=== PATIENT | female | born 1985 | race Caucasian/White ===

== ENCOUNTER 2018-08-06 07:11 | Day surgery (SDC) | payer MEDICARE ==
[~2018-08-06] VITALS: Ht 172.7 cm; Wt 131.5 kg
--- NOTE | ~2018-08-06 | OP ---
PATIENT NAME: BRENDA BURNHAM MEDICAL RECORD: [id number] :85 LOCATION:D.OPS ADMISSION DATE: SURGEON: KARL KWONG MD DATE OF OPERATION: 08/06/2018 PREOPERATIVE DIAGNOSES: 1. Posterior neck sebaceous cyst (3 cm). 2. Morbid obesity. 3. Lupus. 4. Polycystic ovary syndrome. 5. Asthma. 6. Fibromyalgia. 7. Tobacco dependence syndrome. POSTOPERATIVE DIAGNOSES: 1. Posterior neck sebaceous cyst (3 cm). 2. Morbid obesity. 3. Lupus. 4. Polycystic ovary syndrome. 5. Asthma. 6. Fibromyalgia. 7. Tobacco dependence syndrome. PROCEDURE: Excision of 3 cm posterior neck sebaceous cyst. SURGEON: Karl Kwong MD REPORT OF PROCEDURE: The patient's right posterior neck was prepped and draped in sterile fashion. An ovoid incision was made through a skin crease on the right posterior neck. Electrocautery was used to dissect through the subcutaneous tissues. There is a firm inflammatory type mass present here. We just came around the normal appearing fatty tissues and excised all the way down near the fascia of the posterior neck. This area of inflammation was completely excised. There were as still some inflammatory changes to the subcutaneous tissues near the incision, but the fistulous tracts, which were extending out to the skin were all removed with the specimen. We irrigated out the wound with normal saline and care was taken to assure there was no sign of any bleeding. The wound was then infused with a total of 10 mL of 0.25% Marcaine with epinephrine. We then closed the skin transversely using 3-0 silks in a vertical mattress fashion. COMPLICATIONS: None. CONDITION: Stable. ANESTHESIA: General endotracheal and local. BLOOD LOSS: Minimal. TRANSINT:[id number] Voice Confirmation ID: [id number] DOCUMENT ID: [id number] CC: Faviola Graves APN OPERATIVE REPORT [id number] KINGBRENDA KARL ARIAS MD at 1219 CC: FAVIOLA GRAVES APN [id number] DICTATION DATE: 08/06/18 1017 CURRICULUM AND INSTRUCTION DIRECTOR: 08/06/18 [address] [place] [address]
[~2018-08-06 07:11] MED LIST: PROTONIX40 MG PO; SUBOXONE 2 MG-01 TAB SL; [UNRECOGNIZED DRUG - REMARK] PO
[2018-08-06 07:35] LABS: BASOPHILS 0.3 % (0-2); EOSINOPHILS 6.1 % (0-7); HEMATOCRIT 40.4 % (36.0-48.0); HEMOGLOBIN 13.6 g/dL (12-16); IMMATURE GRANULOCYTES 0.1 % (0-5); LYMPHOCYTES 33.9 % (15-50); MCH 28.5 pg (26.0-34.0); MCHC 33.7 g/dL (31.0-37.0); MCV 84.5 fL (80.0-100.0); MEAN PLATELET VOLUME 9.4 fL (7.4-10.4); MONOCYTES 6.1 % (2-11); NEUTROPHILS 53.5 % (40-80); PLATELET COUNT 264 10x3/uL (130-400); RBC 4.78 10x6/uL (4.00-5.40); RDW 15.8 % (11.5-14.5); WBC 7.8 10x3/uL (4.8-10.8)
[2018-08-06 07:50] LABS: CALC OSMOLALITY 279 mosm/kg (275-300); CALCIUM 8.7 mg/dL (8.5-10.1); CARBON DIOXIDE 31.1 mmol/L (21.0-32.0); CHLORIDE - SERUM 105 mmol/L (98-107); CREATININE - SERUM 0.8 mg/dL (0.6-1.3); GLUCOSE 93 mg/dL (74-106); POTASSIUM - SERUM 4.2 mmol/L (3.5-5.1); SODIUM 141 mmol/L (136-145); UREA NITROGEN 10 mg/dL (7-18); eGFR NON AFRICAN AMERICAN 88 mL/min (90-120)
[2018-08-06] MEDS ORDERED: IBUPROFEN800 MG PO (08:26)
[2018-08-06 08:32] VITALS: BP 118/78; Ht 172.7 cm; Wt 131.5 kg
[2018-08-06 08:39] LABS: HCG URINE NEGATIVE (NEGATIVE)
[2018-08-06] MEDS ORDERED: NORCO 10-325 TA1 TAB PO (10:12)
== END 2018-08-06 12:55 | disposition home or self-care (01) ==
LOC: D.OPS 07:11
PROVIDERS: Surgery
DX: D17.0 Benign lipomatous neoplasm of skin and subcutaneous tissue of head, face and neck (principal); E66.01 Morbid (severe) obesity due to excess calories; Z68.41 Body mass index [BMI] 40.0-44.9, adult; M32.9 Systemic lupus erythematosus, unspecified; E28.2 Polycystic ovarian syndrome; J45.909 Unspecified asthma, uncomplicated; M79.7 Fibromyalgia; F17.200 Nicotine dependence, unspecified, uncomplicated; Z01.812 Encounter for preprocedural laboratory examination

== ENCOUNTER → 2020-04-11 12:01 | Outpatient (CLI) | payer MEDICARE ==
[2018-08-06 08:32] VITALS: BMI 44.1
[~2020-04-11 12:01] MED LIST changes: +IBUPROFEN800 MG PO; +NORCO 10-325 TA1 TAB PO
[2020-04-11 12:33] LABS: BASOPHILS 0.2 % (0-2); EOSINOPHILS 1.9 % (0-7); HEMATOCRIT 39.1 % (36.0-48.0); HEMOGLOBIN 12.7 g/dL (12-16); IMMATURE GRANULOCYTES 0.1 % (0-5); LYMPHOCYTES 28.6 % (15-50); MCHC 32.5 g/dL (31.0-37.0); MCV 89.3 fL (80.0-100.0); MEAN PLATELET VOLUME 10.1 fL (7.4-10.4); MONOCYTES 5.7 % (2-11); NEUTROPHILS 63.5 % (40-80); PLATELET COUNT 251 10x3/uL (130-400); RBC 4.38 10x6/uL (4.00-5.40); RDW 13.6 % (11.5-14.5); WBC 8.4 10x3/uL (4.8-10.8)
[2020-04-11 12:53] LABS: ALBUMIN 3.4 g/dL (3.4-5.0); ALKALINE PHOSPHATASE 101 U/L (30-120); ALT (SGPT) 35 U/L (10-68); BILIRUBIN - TOTAL 0.24 mg/dL (0.2-1.3); CALC OSMOLALITY 281 mosm/kg (275-300); CARBON DIOXIDE 30.5 mmol/L (21.0-32.0); CHLORIDE - SERUM 104 mmol/L (98-107); CREATININE - SERUM 0.8 mg/dL (0.6-1.3); GLUCOSE 131 mg/dL (74-106); POTASSIUM - SERUM 4.1 mmol/L (3.5-5.1); PROTEIN - SERUM 6.6 g/dL (6.4-8.2); SODIUM 141 mmol/L (136-145); UREA NITROGEN 10 mg/dL (7-18); eGFR NON AFRICAN AMERICAN 87 mL/min (90-120)
== END | disposition home or self-care (01) ==
LOC: D.LAB 12:01
PROVIDERS: ATTEND Psychiatry & Neurology Neurology
DX: R56.9 Unspecified convulsions (principal)